=== PATIENT | male | born 1945 | race Caucasian/White ===

== ENCOUNTER 2017-07-18 00:36 | Emergency (ER) | payer MEDICARE, BC ==
[2017-07-18] MEDS ORDERED: Lidocaine 1% 20 ML MDV ONE (00:51)
--- NOTE | 2017-07-18 00:58 | EDM.PDOC ---
ED HPI GENERAL MEDICAL PROBLEM - General Chief Complaint: Lower Extremity Injury/Pain Stated Complaint: FOOT/TOENAIL PROBLEM Time Seen by Provider: 07/18/17 00:53 - History of Present Illness INITIAL COMMENTS - FREE TEXT/NARRATIVE: HISTORY AND PHYSICAL: History of present illness: Patient is a 71-year-old white male history of diabetes presents with a concern of an ingrown toenail that got worse over the last several days this is the first digit of his left foot he denies any fever chills nausea vomiting or other complaints Review of systems: As per history of present illness and below otherwise all systems reviewed and negative. Past medical history: As per history of present illness and as reviewed below otherwise noncontributory. Surgical history: As per history of present illness and as reviewed below otherwise noncontributory. Social history: No reported history of drug or alcohol abuse. Family history: As per history of present illness and as reviewed below otherwise noncontributory. Physical exam: HEENT: Atraumatic, normocephalic, pupils reactive, negative for conjunctival pallor or scleral icterus, mucous membranes moist, throat clear, neck supple, nontender, trachea midline. Lungs: Clear to auscultation, breath sounds equal bilaterally, chest nontender. Heart: S1S2, regular, negative for clicks, rubs, or JVD. Abdomen: Soft, nondistended, nontender. Negative for masses or hepatosplenomegaly. Negative for costovertebral tenderness. Pelvis: Stable nontender. Genitourinary: Deferred. Rectal: Deferred. Extremities: Patient is noted have tinea pedis and as noted have a ingrown toenail first digit of his left foot with swelling erythema and tenderness neurovascular exam is unremarkable there is no lymphangitis and no other significant findings Neuro: Awake, alert, oriented. Cranial nerves II through XII unremarkable. Cerebellum unremarkable. Motor and sensory unremarkable throughout. Exam nonfocal. Diagnostics: None Therapeutics: Patient was anesthetized 1% lidocaine patient was prepped and draped in a sterile manner the lateral one quarter of his nail was removed patient tolerated procedure well dressing was applied Impression: #1 ingrown toenail #2 history diabetes Definitive disposition and diagnosis as appropriate pending reevaluation and review of above. Left 1-Hallux Pain Score (Numeric/FACES): 4 - Related Data Allergies Allergy/AdvReac Type Severity Reaction Status Date / Time No Known Allergies Allergy Verified 07/18/17 00:41 Home Meds: Home Meds Lisinopril 20 mg PO DAILY 07/18/17 [History] SitaGLIPtin [Januvia] 0 mg PO DAILY 07/18/17 [History] atorvaSTATin [Lipitor] 0 mg PO DAILY 07/18/17 [History] metFORMIN HCl [Metformin HCl] 500 mg PO BID 07/18/17 [History] Past Medical History Cardiovascular History: Reports: High Cholesterol, Hypertension Endocrine/Metabolic History: Reports: Diabetes, Type II - Infectious Disease History Infectious Disease History: Reports: Chicken Pox, Measles, Mumps - Past Surgical History Dermatological Surgical History: Reports: Other (See Below) Social & Family History - Family History Neurological: Reports: CVA Endocrine/Metabolic: Reports: Diabetes, type II - Tobacco Use Smoking Status *Q: Never Smoker Second Hand Smoke Exposure: No - Caffeine Use Caffeine Use: Reports: Coffee - Recreational Drug Use Recreational Drug Use: No Review of Systems - Review of Systems Review Of Systems: ROS reveals no pertinent complaints other than HPI. ED EXAM, GENERAL - Physical Exam Exam: See Below (See dictation) Course - Vital Signs Last Recorded V/S: Last Vital Signs Temp 36.3 C 07/18/17 00:38 Pulse 91 07/18/17 00:38 Resp 18 07/18/17 00:38 BP 162/111 H 07/18/17 00:38 Pulse Ox 95 07/18/17 00:38 - Orders/Labs/Meds Meds: Medications Discontinued Medications Generic Name Dose Route Start Last Admin Trade Name Carlos PRN Reason Stop Dose Admin Lidocaine HCl Confirm 07/18/17 00:51 Xylocaine 1% Administered 07/18/17 00:52 Dose 20 ml .ROUTE .STK-MED ONE Departure - Departure Time of Disposition: 00:56 Disposition: Home, Self-Care 01 Condition: Good Clinical Impression: Ingrown toenail, History of diabetes mellitus - Discharge Information Referrals: Louie Monroe MD [Primary Care Provider] - Additional Instructions: The following information is given to patients seen in the emergency department who are being discharged to home. This information is to outline your options for follow-up care. We provide all patients seen in our emergency department with a follow-up referral. The need for follow-up, as well as the timing and circumstances, are variable depending upon the specifics of your emergency department visit. If you don't have a primary care physician on staff, we will provide you with a referral. We always advise you to contact your personal physician following an emergency department visit to inform them of the circumstance of the visit and for follow-up with them and/or the need for any referrals to a consulting specialist. The emergency department will also refer you to a specialist when appropriate. This referral assures that you have the opportunity for followup care with a specialist. All of these measure are taken in an effort to provide you with optimal care, which includes your followup. Under all circumstances we always encourage you to contact your private physician who remains a resource for coordinating your care. When calling for followup care, please make the office aware that this follow-up is from your recent emergency room visit. If for any reason you are refused follow-up, please contact the [facility] emergency department at and asked to speak to the emergency department charge nurse. Cipro as prescribed dressing changes twice a day as discussed follow-up with private medical doctor and/or podiatry Wednesday morning return as needed as discussed
[2017-07-18] MEDS ORDERED: Bacitracin Oint 1 GM U/D Packet TOP ONE (01:02)
[2017-07-18] MEDS ORDERED: Lidocaine 1% 20 ML MDV INJECT ONE (01:03)
[2017-07-18 01:35] VITALS: BP 144/98
== END 2017-07-18 01:17 | disposition home or self-care (01) ==
LOC: MW.ED 00:36
DX: L60.0 Ingrowing nail (principal); E11.9 Type 2 diabetes mellitus without complications; E78.00 Pure hypercholesterolemia, unspecified; I10 Essential (primary) hypertension; Z79.84 Long term (current) use of oral hypoglycemic drugs; Z79.899 Other long term (current) drug therapy
CPT/HCPCS: 11750; 82962; 99282; 99283

== ENCOUNTER 2025-05-06 09:23 | Emergency (ER) | payer BC, MEDICARE ==
[2025-05-06] MEDS ORDERED: Sodium Chloride 0.9% 2.5 ML Syringe FLUSH PRN (10:48)
[2025-05-06] MEDS ORDERED: Sodium Chloride 0.9% 10 ML Syringe FLUSH PRN (10:48)
[2025-05-06] MEDS ORDERED: Sodium Chloride 0.9% 20 ML SDV IV PRN (10:48)
[2025-05-06 10:56] LABS: BASOPHILS ABSOLUTE AUTO 0.04 K/uL (0.00-0.20); BASOPHILS PERCENT AUTO 0.7 % (0.0-1.0); EOSINOPHILS ABSOLUTE AUTO 0.12 K/uL (0.00-0.45); EOSINOPHILS PERCENT AUTO 2.1 % (0.0-6.0); HEMATOCRIT 48.1 % (42.0-52.0); HEMOGLOBIN 14.7 g/dL (14.0-18.0); IMMATURE GRAN ABSOLUTE AUTO 0.02 K/uL (0.00-0.05); IMMATURE GRAN PERCENT AUTO 0.4 % (0.0-0.4); LYMPHOCYTES ABSOLUTE AUTO 0.71 K/uL (1.00-4.80); LYMPHOCYTES PERCENT AUTO 12.5 % (24.0-44.0); MEAN CORPUSCULAR HGB CONC 30.6 g/dL (32.0-36.0); MEAN CORPUSCULAR VOLUME 94.9 fL (83.0-99.0); MEAN PLATELET VOLUME 10.2 fL (9.4-12.4); MONOCYTES PERCENT AUTO 14.1 % (0.0-8.0); NEUTROPHILS ABSOLUTE AUTO 3.99 K/uL (1.80-7.70); NEUTROPHILS PERCENT AUTO 70.2 % (41.0-71.0); PLATELET COUNT,PLT 174 K/uL (150-400); RED BLOOD CELL COUNT 5.07 M/uL (4.52-5.90); WHITE BLOOD CELL COUNT,WBC 5.68 K/uL (3.9-11.3)
[2025-05-06 11:31] LABS: A/G RATIO 0.9 (0.9-1.6); ALBUMIN 3.3 g/dL (3.4-5.0); BILIRUBIN TOTAL 1.1 mg/dL (0.2-1.0); CARBON DIOXIDE,CO2 29.3 mmol/L (21.0-32.0); CREATININE 1.1 mg/dL (0.8-1.3); EST CRCL DRUG DOSING (CG) 48.33 mL/min; MAGNESIUM 1.8 mg/dL (1.8-2.4); POTASSIUM,K 4.7 mmol/L (3.5-5.1)
[2025-05-06] MEDS: Furosemide 40 MG/4 ML VIAL IVPUSH ONE (12:03)
[2025-05-06] MEDS: Iopamidol 755 MG/ML 500 ML Multipack Bottle IVPUSH STA (13:05)
[2025-05-06 15:41] VITALS: BP 150/96; PULSE 87
[2025-05-06 17:04] LABS: INR 1.67 (0.86-1.11); PTT,PARTIAL THROMBOPLSTIN TIME 34.2 SEC (23.9-30.7)
== END 2025-05-06 19:33 ==
LOC: MW.ED 09:23
DX: I70.202 Unspecified atherosclerosis of native arteries of extremities, left leg (principal); I11.0 Hypertensive heart disease with heart failure; I50.9 Heart failure, unspecified; E11.9 Type 2 diabetes mellitus without complications; E78.5 Hyperlipidemia, unspecified; E78.00 Pure hypercholesterolemia, unspecified; Z79.01 Long term (current) use of anticoagulants; Z79.84 Long term (current) use of oral hypoglycemic drugs; Z79.899 Other long term (current) drug therapy
CPT/HCPCS: 36415; 71045; 73590; 75635; 80053; 83605; 83735; 83880; 85025; 85610; 85730; 87040; 93970; 96374; 99285; J1938; Q9967; 99284

== ENCOUNTER 2025-06-03 12:02 | Emergency (ER) | payer MEDICARE ==
[2025-06-03 12:25] VITALS: PULSE 80
[2025-06-03] MEDS ORDERED: Sodium Chloride 0.9% 10 ML Syringe FLUSH PRN (12:41)
[2025-06-03] MEDS ORDERED: Sodium Chloride 0.9% 2.5 ML Syringe FLUSH PRN (12:41)
[2025-06-03 13:02] LABS: BASOPHILS ABSOLUTE AUTO 0.03 K/uL (0.00-0.20); BASOPHILS PERCENT AUTO 0.4 % (0.0-1.0); EOSINOPHILS ABSOLUTE AUTO 0.25 K/uL (0.00-0.45); EOSINOPHILS PERCENT AUTO 3.4 % (0.0-6.0); IMMATURE GRAN ABSOLUTE AUTO 0.04 K/uL (0.00-0.05); IMMATURE GRAN PERCENT AUTO 0.5 % (0.0-0.4); LYMPHOCYTES ABSOLUTE AUTO 1.05 K/uL (1.00-4.80); LYMPHOCYTES PERCENT AUTO 14.3 % (24.0-44.0); MEAN PLATELET VOLUME 11.6 fL (9.4-12.4); MONOCYTES ABSOLUTE AUTO 0.91 K/uL (0.00-0.80); MONOCYTES PERCENT AUTO 12.4 % (0.0-8.0); NEUTROPHILS ABSOLUTE AUTO 5.08 K/uL (1.80-7.70); NEUTROPHILS PERCENT AUTO 69.0 % (41.0-71.0); NRBC ABSOLUTE 0.00 K/uL (0.00-0.02); NRBC PERCENT 0.0 /100WBC (0.0-0.2); PLATELET COUNT,PLT 202 K/uL (150-400); RED BLOOD CELL COUNT 5.44 M/uL (4.52-5.90); WHITE BLOOD CELL COUNT,WBC 7.36 K/uL (3.9-11.3)
[2025-06-03 13:33] LABS: A/G RATIO 0.8 (0.9-1.6); ALANINE AMINOTRANSFERASE,ALT 35.0 IU/L (14-63); ASPARTATE AMNIOTRANSFERASE,AST 31.0 IU/L (15-37); BILIRUBIN TOTAL 0.7 mg/dL (0.2-1.0); BLOOD UREA NITROGEN,BUN 80.0 mg/dL (7.0-18.0); CARBON DIOXIDE,CO2 27.0 mmol/L (21.0-32.0); CHLORIDE,CL 96.0 mmol/L (98-107); CREATININE 2.0 mg/dL (0.8-1.3); EST CRCL DRUG DOSING (CG) 28.5 mL/min; ESTIMATED GFR 33.0 mL/min (>60); GLUCOSE RANDOM 118.0 mg/dL (74-106); POTASSIUM,K 4.8 mmol/L (3.5-5.1); PRO B-TYPE NATRIUR PEPT,BNPPRO 1766.0 pg/mL (0-450); PROTEIN TOTAL,TP 8.3 g/dL (6.4-8.2); SODIUM,NA 131.0 mmol/L (136-148)
[2025-06-03 15:46] LABS: APPEARANCE,URINE CLEAR; GLUCOSE,URINE 250 mg/dL (NEGATIVE); OCCULT BLOOD,URINE TRACE-INTACT (NEGATIVE)
[2025-06-03 16:03] LABS: EPITHELIAL CELLS,URINE RARE (NONE-FEW)
[2025-06-03 17:03] VITALS: BP 106/71
== END 2025-06-03 17:02 | disposition home or self-care (01) ==
LOC: MW.ED 12:02
DX: I95.9 Hypotension, unspecified (principal); R94.4 Abnormal results of kidney function studies; E87.1 Hypo-osmolality and hyponatremia; I10 Essential (primary) hypertension; E78.00 Pure hypercholesterolemia, unspecified; Z79.899 Other long term (current) drug therapy; Z79.84 Long term (current) use of oral hypoglycemic drugs
CPT/HCPCS: 36415; 71045; 71045-26; 80053; 81001; 83735; 83880; 85025; 87040; 93005; 93010; 99284; 99285